=== PATIENT | male | born 1990 | race Caucasian/White ===

== ENCOUNTER 2016-02-23 22:36 | Inpatient (IN) | payer OTHER ==
--- NOTE | 2016-02-23 23:11 | HP ---
COWS - Scale Resting Pulse: 2= [place] 101-120 Sweatin=Flushed/Facial Moisture Restless Observation: 5= Unable to Sit Still Pupil Size: 2= Moderately Dilated Bone or Joint Aches: 4=Acute Joint/Muscle Pain Runny Nose/ Eye Tearin= None GI Upset > 30mins: 3= Vomiting/Diarrhea Tremor Observation: 2= Slight Tremor Visible Yawning Observation: 0= None Anxiety or Irritability: 2=Irritable/Anxious Goose Flesh Skin: 0=Smooth Skin COWS Score: 22 Admission [facility] Chief Complaint: withdrawal sx's Allergies/Adverse Reactions: Allergies Allergy/AdvReac Type Severity Reaction Status Date / Time No Known Allergies Allergy Verified 02/23/16 20:56 History of Present Illness: 25 Y.O. MALE WITH H/O OPIOID DEPENDENCE HERE FOR DETOX TXMENT. D/C FROM HERE 4 WEEKS AGO AND HAS SINCE RELAPSED. CLIENT WAS SEEN AND TREATED AT [facility] EARLIER TODAY FOR OPIATE OVERDOSE AND HAS SINCE BEEN MEDICALLY CLEARED. Exam Limitations: No Limitations - Ebola screening Have you traveled outside of the country in the last 21 days: No Have you had contact with anyone from an Ebola affected area: No Have you been sick,other than usual withdrawal symptoms: No Do you have a fever: No - Review of Systems Constitutional: Chills, Loss of Appetite, Night Sweats EENT: reports: No Symptoms Reported Respiratory: reports: No Symptoms reported Cardiac: reports: No Symptoms Reported GI: reports: Poor Appetite : reports: No Symptoms Reported Musculoskeletal: reports: Back Pain Neuro: reports: Other (ECZEMA TO FACE) Endocrine: reports: No Symptoms Reported Hematology: reports: No Symptoms Reported Psychiatric: reports: Anxious Other Systems: Reviewed and Negative Patient History - Patient Medical History Hx Anemia: No Hx Asthma: No Hx Chronic Obstructive Pulmonary Disease (COPD): No Hx Cancer: No Hx Cardiac Disorders: No Hx Congestive Heart Failure: No Hx Hypertension: No Hx Hypercholesterolemia: No Hx Pacemaker: No HX Cerebrovascular Accident: No Hx Seizures: No Hx Dementia: No Hx Diabetes: No Hx Gastrointestinal Disorders: No Hx Liver Disease: No Hx Genitourinary Disorders: No Hx Sexually Transmitted Disorders: No Hx Renal Disease (ESRD): No Hx Thyroid Disease: No Hx Human Immunodeficiency Virus (HIV): No Hx Hepatitis C: No Hx Depression: Yes (NO MEDS) Hx Suicide Attempt: No Hx Bipolar Disorder: No Hx Schizophrenia: No Other Medical History: DENIES - Patient Surgical History Past Surgical History: Yes Hx Neurologic Surgery: No Hx Cataract Extraction: No Hx Cardiac Surgery: No Hx Lung Surgery: No Hx Breast Surgery: No Hx Breast Biopsy: No Hx Abdominal Surgery: No Hx Appendectomy: No Hx Cholecystectomy: No Hx Genitourinary Surgery: No Hx Section: No Hx Orthopedic Surgery: No Other Surgical History: left ingroin hernia 2007 Anesthesia Reaction: No - PPD History Previous Implant?: Yes Documented Results: Negative w/proof Implanted On Prior [facility] Admission?: Yes Date: 01/18/16 Results: 0MM PPD to be Administered?: No - Smoking Cessation Smoking history: Current every day smoker Have you smoked in the past 12 months: Yes Aproximately how many cigarettes per day: 20 Cigars Per Day: 0 Hx Chewing Tobacco Use: No Initiated information on smoking cessation: Yes 'Breaking Loose' booklet given: 02/23/16 - Substance & Tx. History Hx Alcohol Use: No Hx Substance Use: Yes Substance Use Type: Alcohol Hx Substance Use Treatment: Yes ([facility]) - Substances Abused HEROIN Route: Inhalation Frequency: Daily Amount used: 7 BAGS Age of first use: 21 Date of Last Use: 02/23/16 Family Disease History - Family Disease History Family History: Denies Admission Physical Exam [facility] - Physical General Appearance: Yes: Appropriately Dressed, Moderate Distress, Sweating, Anxious, Other (PERIODS OF DROWSINESS) HEENTM: Yes: EOMI, Normocephalic, Pharynx Normal Respiratory: Yes: Chest Non-Tender, Lungs Clear, Normal Breath Sounds, No Respiratory Distress, No Accessory Muscle Use Neck: Yes: No masses,lesions,Nodules, Supple, Trachea in good position Breast: Yes: Breast Exam Deferred Cardiology: Yes: Regular Rhythm, S1, S2, Tachycardia Abdominal: Yes: Normal Bowel Sounds, Non Tender, Flat, Soft Genitourinary: Yes: Within Normal Limits Back: Yes: Normal Inspection Musculoskeletal: Yes: full range of Motion, Gait Steady Extremities: Yes: Normal Capillary Refill, Normal Range of Motion, Non-Tender, Tremors Neurological: Yes: Fully Oriented, Alert, Motor Strength 5/5 Integumentary: Yes: Normal Color, Warm, Moist, Other (ECZEMA) Lymphatic: Yes: Within Normal Limits - Diagnostic (1) Nicotine dependence Current Visit: Yes Status: Chronic Qualifiers: Nicotine product type: cigarettes Substance use status: uncomplicated Qualified Code(s): F17.210 - Nicotine dependence, cigarettes, uncomplicated (2) Opioid dependence with withdrawal Current Visit: Yes Status: Chronic Cleared for Admission [facility] - Detox or Rehab [facility] Level of Care: Medically Managed Detox Regimen/Protocol: Methadone [facility] Breath Alcohol Content Breath Alcohol Content: 0 Vital Signs - Vital Signs Vital Signs Refused: No Temperature: 96.3 F Temperature Source: Oral Pulse Rate: 105 Respiratory Rate: 20 Blood Pressure: 120/66 BP Location: Left Arm Blood Pressure Position: Sitting - Height Height: 6 ft 1 in - Weight Weight: 84.368 kg Weight Measurement Method: Standing Scale Body Mass Index (BMI): 24.5 - Bowel Function Bowel Movement: No Urine Drug Screen - Test Device Lot Number: [id number] Expiration Date: 10/08/17 - Control Is Test Valid: Yes - Results Drug Screen Negative: No Urine Drug Screen Results: OPI-Opiates, OXY-Oxycodone
[2016-02-23 23:26] VITALS: BMI 24.5
[2016-02-23] MEDS ORDERED: MAGNESIUM CITRATE 300 ML BOTTLE PO PRN (23:26)
[2016-02-23] MEDS ORDERED: guaiFENesin/D-METHORPHAN HB 10 ML UNIT-DOSE CUPS PO PRN (23:26)
[2016-02-23] MEDS ORDERED: MENTHOL/PHENOL 1 EACH UD MM PRN (23:26)
[2016-02-23] MEDS ORDERED: LOPERAMIDE HCL 2 MG CAPSULE PO PRN (23:26)
[2016-02-23] MEDS ORDERED: P-EPHED 60MG/TRIPROLIDI 2.5MG TABLET PO PRN (23:26)
[2016-02-23] MEDS ORDERED: MAGNESIUM HYDROX 2400MG/30ML ORAL SUSPENSION 30 ML CUP PO PRN (23:26)
[2016-02-23] MEDS ORDERED: MAG HYDROX/AL HYDROX/SIMETH 30 ML UNIT-DOSE CUP PO PRN (23:26)
[2016-02-23] MEDS ORDERED: ACETAMINOPHEN 325 MG TABLET (FP) PO PRN (23:26)
[2016-02-24] MEDS ORDERED: METHADONE HCL 10 MG TABLET (FOR DETOX USE ONLY) PO ONE ×3 (03:28→23:00)
[2016-02-24] MEDS ORDERED: diazePAM 5 MG TABLET PO PRN (03:28)
[2016-02-24] MEDS: NICOTINE POLACRILEX 2 MG GUM BC PRN ×2 (04:06→08:35)
--- NOTE | 2016-02-24 09:11 | EKG ---
Test Reason : Blood Pressure : / mmHG Vent. Rate : 079 BPM Atrial Rate : 079 BPM P-R Int : 152 ms QRS Dur : 100 ms QT Int : 428 ms P-R-T Axes : 075 068 033 degrees QTc Int : 490 ms NORMAL SINUS RHYTHM PROLONGED QT ABNORMAL ECG NO PREVIOUS ECGS AVAILABLE Confirmed by VIKRAM HERNANDEZ MD ([id number]) on 02/24/2016 9:10:56 AM Referred By: Confirmed By:VIKRAM HERNANDEZ MD
--- NOTE | 2016-02-24 09:52 | PN ---
[facility] Progress Note Note: PATIENT STATED HE HAS BEEN DRINKING ALCOHOL DAILY,1 PINT OF VODKA STATED AT AGE OF [age] YEARS OLD,LAST DRINKI ON 02/23/16 WILL ADD LIBRIUM TO HIS ORIGINAL METHADONE REGIMEN
[2016-02-24] MEDS ORDERED: chlordiazePOXIDE HCL 25 MG CAPSULE PO ONE (09:56)
[2016-02-24 10:07] LABS: ALBUMIN 4.5 g/dl (3.4-5.0); ALK PHOS 62 U/L (45-117); ANION GAP 6 (8-16); CALCIUM 8.9 mg/dL (8.5-10.1); CO2 32 mmol/L (21-32); CREATININE 0.9 mg/dL (0.7-1.3); GLUCOSE,RANDOM 72 mg/dL (74-106); SGOT/AST 16 U/L (15-37); SGPT/ALT 20 U/L (12-78); TOT PROT 7.2 g/dl (6.4-8.2)
[2016-02-24 10:39] LABS: MCH 30.6 pg (25.7-33.7); MCHC 35.6 g/dl (32.0-35.9); MEAN CELL VOLUME 85.8 fl (80-96); PLATELET COUNT 212 K/MM3 (134-434); RDW 12.8 % (11.9-15.9); WHITE BLOOD COUNT 10.8 K/mm3 (4.0-10.0)
[2016-02-24] MEDS: PRENATAL VITAMINS W/ FOLIC ACID TABLET (FP) PO SCH (10:43)
[2016-02-24] MEDS: hydrOXYzine PAMOATE 50 MG CAPSULE (FP) PO PRN (10:43)
[2016-02-24] MEDS: NICOTINE 21 MG/24 HOURS TOPICAL PATCH TD SCH (10:43)
--- NOTE | 2016-02-24 10:52 | PN ---
[facility] CIWA - CIWA Score Nausea/Vomitin Muscle Tremors: 3 Anxiety: 3 Agitation: 2 Paroxysmal Sweats: 1-Minimal Palms Moist Orientation: 0-Oriented Tacttile Disturbances: 1-Very Mild Itch/Numbness Auditory Disturbances: 1-Very Mild Visual Disturbances: 1-Very Mild Sensitivity Headache: 2-Mild CIWA-Ar Total Score: 17 [facility] COWS - Scale Resting Pulse: 1= [place] 81-100 Sweatin= Chills/Flushing Restless Observation: 3= Extraneous Movement Pupil Size: 1= Pupils >than Normal Bone or Joint Aches: 2= Severe Diffuse Aches Runny Nose/ Eye Tearin= Runny Nose/Eyes GI Upset > 30mins: 2= Nausea/Diarrhea Tremor Observation of Outstretched Hands: 2= Slight Tremor Visible Yawning Observation: 1= 1-2x During Session Anxiety or Irritability: 2=Irritable/Anxious Goose Flesh Skin: 0=Smooth Skin COWS Score: 17 [facility] Progress Note (SOAP) Subjective: ALERT,IRRITABLE,ANXIOUS,INTERRUPTED SLEEP,TREMOR,PAIN IN THE BODY AND BACK Objective: 02/24/16 10:45 Vital Signs Temperature 97.9 F 02/24/16 09:56 Pulse Rate 95 H 02/24/16 09:56 Respiratory Rate 18 02/24/16 09:56 Blood Pressure 124/82 02/24/16 09:56 O2 Sat by Pulse Oximetry (%) EKG NSR,PROLONG QT,POOR TRACING Laboratory Last Values WBC 10.8 K/mm3 (4.0-10.0) H D 02/24/16 08:00 RBC 4.65 M/mm3 (4.00-5.60) 02/24/16 08:00 Hgb 14.2 GM/dL (11.7-16.9) 02/24/16 08:00 Hct 39.9 % (35.4-49) 02/24/16 08:00 MCV 85.8 fl (80-96) 02/24/16 08:00 MCHC 35.6 g/dl (32.0-35.9) 02/24/16 08:00 RDW 12.8 % (11.9-15.9) 02/24/16 08:00 Plt Count 212 K/MM3 (134-434) 02/24/16 08:00 MPV 9.0 fl (7.5-11.1) 02/24/16 08:00 Sodium 139 mmol/L (136-145) 02/24/16 08:00 Potassium 4.0 mmol/L (3.5-5.1) 02/24/16 08:00 Chloride 101 mmol/L (98-107) 02/24/16 08:00 Carbon Dioxide 32 mmol/L (21-32) 02/24/16 08:00 Anion Gap 6 (8-16) L 02/24/16 08:00 BUN 10 mg/dL (7-18) 02/24/16 08:00 Creatinine 0.9 mg/dL (0.7-1.3) 02/24/16 08:00 Creat Clearance w eGFR > 60 (>60) 02/24/16 08:00 Random Glucose 72 mg/dL (74-106) L 02/24/16 08:00 Calcium 8.9 mg/dL (8.5-10.1) 02/24/16 08:00 Total Bilirubin 1.0 mg/dL (0.2-1.0) 02/24/16 08:00 AST 16 U/L (15-37) 02/24/16 08:00 ALT 20 U/L (12-78) 02/24/16 08:00 Alkaline Phosphatase 62 U/L (45-117) 02/24/16 08:00 Total Protein 7.2 g/dl (6.4-8.2) 02/24/16 08:00 Albumin 4.5 g/dl (3.4-5.0) 02/24/16 08:00 OTHER LABS PENDING 02/24/16 10:53 Assessment: 02/24/16 10:54 WITHDRAWAL SYMPTOM Plan: CONTINUE DETOX,LIBRIUM REGIMEN ADDED TO METHADONE REGIMEN
[2016-02-24 10:59] LABS: URINE APPEARANCE CLEAR; URINE BILIRUBIN NEGATIVE (NEGATIVE); URINE BLOOD NEGATIVE (NEGATIVE); URINE COLOR STRAW; URINE GLUCOSE (UA) NEGATIVE (NEGATIVE); URINE KETONE NEGATIVE (NEGATIVE); URINE LEUK ESTERASE NEGATIVE (NEGATIVE); URINE NITRITE NEGATIVE (NEGATIVE); URINE PROTEIN NEGATIVE (NEGATIVE); URINE UROBILINOGEN NEGATIVE E.U./dl (0.2-1.0)
[2016-02-24] MEDS: chlordiazePOXIDE HCL 25 MG CAPSULE PO SCH ×3 (11:31→22:50)
--- NOTE | 2016-02-24 12:16 | CONSULT ---
[facility] Psychiatric Consult - Data Date of interview: 02/24/16 Admission source: [facility] Identifying data: This is the second admission to [address] [place] [address] for this 25 yo single childless male,unemployed,supported by family. Substance Abuse History: Patient reports using heroin since 23 years old,15 bags daily recently. Medical History: unremarkable Psychiatric History: denies previous psychiatric history,no treatment,no suicidal attempts.Patient reports depressed on and off.Never been on medications and is not willing to start at present. Physical/Sexual Abuse/Trauma History: denies Mental Status Exam - Mental Status Exam Alert and Oriented to: Time, Place, Person Cognitive Function: Grossly Intact Mood: Euthymic Affect: Labile Patient Behavior: Cooperative Speech Pattern: Clear Voice Loudness: Normal Thought Process: Goal Oriented Thought Disorder: Not Present Hallucinations: Denies Suicidal Ideation: Denies Homicidal Ideation: Denies Insight/Judgement: Fair Sleep: Fair Appetite: Good Muscle strength/Tone: Normal Gait/Station: Normal Psychiatric Findings - Problem List ([place] 1, 2,3) (1) Nicotine dependence Current Visit: Yes Status: Chronic Qualifiers: Nicotine product type: cigarettes Substance use status: uncomplicated Qualified Code(s): F17.210 - Nicotine dependence, cigarettes, uncomplicated (2) Opioid dependence with withdrawal Current Visit: Yes Status: Chronic (3) Substance induced mood disorder Current Visit: Yes Status: Chronic - Initial Treatment Plan Initial Treatment Plan: Will monitor progress.Psychoeducation,supportive therapy provided.
[2016-02-24] MEDS: diphenhydrAMINE HCL 50 MG CAPSULE PO PRN (22:50)
[2016-02-24] MEDS: THIAMINE HCL 100 MG TABLET (FP) PO SCH (22:51)
[2016-02-25] MEDS: diphenhydrAMINE HCL 50 MG CAPSULE PO PRN (01:52)
[2016-02-25] MEDS: chlordiazePOXIDE HCL 25 MG CAPSULE PO PRN (01:55)
[2016-02-25] MEDS: chlordiazePOXIDE HCL 25 MG CAPSULE PO SCH ×4 (05:32→22:14)
[2016-02-25] MEDS: NICOTINE POLACRILEX 2 MG GUM BC PRN (06:44)
[2016-02-25] MEDS ORDERED: METHADONE HCL 10 MG TABLET (FOR DETOX USE ONLY) PO ONE (10:00)
[2016-02-25] MEDS: NICOTINE 21 MG/24 HOURS TOPICAL PATCH TD SCH (10:23)
[2016-02-25] MEDS: PRENATAL VITAMINS W/ FOLIC ACID TABLET (FP) PO SCH (10:24)
--- NOTE | 2016-02-25 14:52 | PN ---
S CIWA - CIWA Score Nausea/Vomitin Muscle Tremors: 3 Anxiety: 3 Agitation: 2 Paroxysmal Sweats: 3 Orientation: 0-Oriented Tacttile Disturbances: 1-Very Mild Itch/Numbness Auditory Disturbances: 0-None Visual Disturbances: 0-None Headache: 0-None Present CIWA-Ar Total Score: 14 [facility] COWS - Scale Resting Pulse: 1= [place] 81-100 Sweatin=Flushed/Facial Moisture Restless Observation: 1= Difficult to Sit Still Pupil Size: 1= Pupils >than Normal Bone or Joint Aches: 1= Mild Discomfort Runny Nose/ Eye Tearin= Nasal Congestion GI Upset > 30mins: 1= Stomach Cramp Tremor Observation of Outstretched Hands: 1= Tremor [place], Not Seen Yawning Observation: 0= None Anxiety or Irritability: 1=Feels Anxious/Irritable Goose Flesh Skin: 0=Smooth Skin COWS Score: 10 [facility] Progress Note (SOAP) Subjective: interrupted sleep but better , facial rash Objective: 02/25/16 14:49 Vital Signs Temperature 97.7 F 02/25/16 14:03 Pulse Rate 85 02/25/16 14:03 Respiratory Rate 18 02/25/16 14:03 Blood Pressure 113/57 02/25/16 14:03 O2 Sat by Pulse Oximetry (%) Laboratory Tests 02/24/16 02/24/16 02/24/16 08:00 08:00 08:00 WBC 10.8 H D RBC 4.65 Hgb 14.2 Hct 39.9 MCV 85.8 MCHC 35.6 RDW 12.8 Plt Count 212 MPV 9.0 Sodium 139 Potassium 4.0 Chloride 101 Carbon Dioxide 32 Anion Gap 6 L BUN 10 Creatinine 0.9 Creat Clearance w eGFR > 60 Random Glucose 72 L Calcium 8.9 Total Bilirubin 1.0 AST 16 ALT 20 Alkaline Phosphatase 62 Total Protein 7.2 Albumin 4.5 Urine Color Urine Appearance Urine pH Ur Specific [place] Urine Protein Urine Glucose (UA) Urine Ketones Urine Blood Urine Nitrite Urine Bilirubin Urine Urobilinogen Ur Leukocyte Esterase RPR Titer Nonreactive 02/24/16 08:00 WBC RBC Hgb Hct MCV MCHC RDW Plt Count MPV Sodium Potassium Chloride Carbon Dioxide Anion Gap BUN Creatinine Creat Clearance w eGFR Random Glucose Calcium Total Bilirubin AST ALT Alkaline Phosphatase Total Protein Albumin Urine Color Straw Urine Appearance Clear Urine pH 6.0 Ur Specific [place] 1.005 Urine Protein Negative Urine Glucose (UA) Negative Urine Ketones Negative Urine Blood Negative Urine Nitrite Negative Urine Bilirubin Negative Urine Urobilinogen Negative Ur Leukocyte Esterase Negative RPR Titer pt [id number] in nad ambulating feeling well 02/25/16 14:50 face pap. squamous rash on face Assessment: 02/25/16 14:51 withdrawl sxs philip. derm Plan: cont. detox increase fluids hydrocortisone cream
[2016-02-25] MEDS: HYDROCORTISONE 1% TOPICAL CREAM 30 GM TUBE TP PRN (15:53)
[2016-02-25] MEDS: hydrOXYzine PAMOATE 50 MG CAPSULE (FP) PO PRN (17:52)
[2016-02-25] MEDS: IBUPROFEN 400 MG TABLET (FP) PO PRN (17:53)
--- NOTE | 2016-02-25 18:40 | PN ---
[facility] Progress Note Note: called by nurse to order Trazodone for insomnia, reviewed medical record patient was seen twice while in detox and during the evaluation patient denied any history of treatment with medications, will order ambien 10 mg prn
[2016-02-25] MEDS: ZOLPIDEM TARTRATE 10 MG TABLET (PARK CARE ONLY) PO PRN (22:14)
[2016-02-25] MEDS: THIAMINE HCL 100 MG TABLET (FP) PO SCH (22:14)
[2016-02-26] MEDS: diphenhydrAMINE HCL 50 MG CAPSULE PO PRN (01:02)
[2016-02-26] MEDS: chlordiazePOXIDE HCL 25 MG CAPSULE PO SCH (05:27)
[2016-02-26] MEDS: IBUPROFEN 400 MG TABLET (FP) PO PRN (06:30)
[2016-02-26] MEDS ORDERED: METHADONE HCL 5 MG TABLET (FOR DETOX USE ONLY) PO ONE (10:00)
[2016-02-26] MEDS: chlordiazePOXIDE 5 MG CAPSULE PO SCH ×3 (10:19→22:10)
[2016-02-26] MEDS: NICOTINE 21 MG/24 HOURS TOPICAL PATCH TD SCH (10:19)
[2016-02-26] MEDS: HYDROCORTISONE 1% TOPICAL CREAM 30 GM TUBE TP PRN (10:19)
[2016-02-26] MEDS: PRENATAL VITAMINS W/ FOLIC ACID TABLET (FP) PO SCH (10:19)
[2016-02-26] MEDS: TRIAMCINOLONE ACET 0.1% CREAM 15 GM TUBE TP SCH ×2 (12:29→22:10)
[2016-02-26] MEDS: chlordiazePOXIDE HCL 25 MG CAPSULE PO PRN (12:51)
--- NOTE | 2016-02-26 12:58 | PN ---
[facility] Progress Note (SOAP) Subjective: interrupted sleep, sweats , wants to see psych to change sleep meds Objective: 02/26/16 12:56 Vital Signs Temperature 97.5 F L 02/26/16 10:02 Pulse Rate 77 02/26/16 10:02 Respiratory Rate 16 02/26/16 10:02 Blood Pressure 114/62 02/26/16 10:02 O2 Sat by Pulse Oximetry (%) Laboratory Tests 02/24/16 02/24/16 02/24/16 08:00 08:00 08:00 WBC 10.8 H D RBC 4.65 Hgb 14.2 Hct 39.9 MCV 85.8 MCHC 35.6 RDW 12.8 Plt Count 212 MPV 9.0 Sodium 139 Potassium 4.0 Chloride 101 Carbon Dioxide 32 Anion Gap 6 L BUN 10 Creatinine 0.9 Creat Clearance w eGFR > 60 Random Glucose 72 L Calcium 8.9 Total Bilirubin 1.0 AST 16 ALT 20 Alkaline Phosphatase 62 Total Protein 7.2 Albumin 4.5 Urine Color Urine Appearance Urine pH Ur Specific [place] Urine Protein Urine Glucose (UA) Urine Ketones Urine Blood Urine Nitrite Urine Bilirubin Urine Urobilinogen Ur Leukocyte Esterase RPR Titer Nonreactive 02/24/16 08:00 WBC RBC Hgb Hct MCV MCHC RDW Plt Count MPV Sodium Potassium Chloride Carbon Dioxide Anion Gap BUN Creatinine Creat Clearance w eGFR Random Glucose Calcium Total Bilirubin AST ALT Alkaline Phosphatase Total Protein Albumin Urine Color Straw Urine Appearance Clear Urine pH 6.0 Ur Specific [place] 1.005 Urine Protein Negative Urine Glucose (UA) Negative Urine Ketones Negative Urine Blood Negative Urine Nitrite Negative Urine Bilirubin Negative Urine Urobilinogen Negative Ur Leukocyte Esterase Negative RPR Titer pt aox3 in nad ambulating Assessment: 02/26/16 12:57 withdrawl sxs insomnia Plan: cont. detox increase fluids pysch re-eval
[2016-02-26] MEDS: THIAMINE HCL 100 MG TABLET (FP) PO SCH (22:10)
[2016-02-26] MEDS: ZOLPIDEM TARTRATE 10 MG TABLET (PARK CARE ONLY) PO PRN (22:10)
[2016-02-27] MEDS: hydrOXYzine PAMOATE 50 MG CAPSULE (FP) PO PRN (02:08)
[2016-02-27] MEDS: chlordiazePOXIDE 5 MG CAPSULE PO SCH (05:34)
[2016-02-27] MEDS: IBUPROFEN 400 MG TABLET (FP) PO PRN (06:32)
[2016-02-27] MEDS ORDERED: METHADONE HCL 5 MG TABLET (FOR DETOX USE ONLY) PO ONE (10:00)
[2016-02-27] MEDS: PRENATAL VITAMINS W/ FOLIC ACID TABLET (FP) PO SCH (10:11)
[2016-02-27] MEDS: TRIAMCINOLONE ACET 0.1% CREAM 15 GM TUBE TP SCH ×2 (10:11→23:20)
[2016-02-27] MEDS: NICOTINE 21 MG/24 HOURS TOPICAL PATCH TD SCH (10:12)
[2016-02-27] MEDS: chlordiazePOXIDE HCL 10 MG CAPSULE PO SCH ×3 (10:12→22:08)
--- NOTE | 2016-02-27 10:50 | PN ---
[facility] Progress Note (SOAP) Subjective: tired interrupted sleep irritable Objective: 02/27/16 10:52 Vital Signs Temperature 98.1 F 02/27/16 10:02 Pulse Rate 90 02/27/16 10:02 Respiratory Rate 18 02/27/16 10:02 Blood Pressure 126/69 02/27/16 10:02 O2 Sat by Pulse Oximetry (%) awake/alert ambulating no acute distress Assessment: 02/27/16 10:52 withdrawal sx Plan: continue detox increase fluids
[2016-02-27] MEDS: THIAMINE HCL 100 MG TABLET (FP) PO SCH (22:07)
[2016-02-27] MEDS: ZOLPIDEM TARTRATE 10 MG TABLET (PARK CARE ONLY) PO PRN (22:08)
[2016-02-28] MEDS: hydrOXYzine PAMOATE 50 MG CAPSULE (FP) PO PRN ×3 (00:46→10:39)
[2016-02-28] MEDS: chlordiazePOXIDE HCL 10 MG CAPSULE PO SCH (05:28)
[2016-02-28] MEDS: IBUPROFEN 400 MG TABLET (FP) PO PRN (05:30)
[2016-02-28] MEDS ORDERED: METHADONE HCL 10 MG TABLET (FOR DETOX USE ONLY) PO ONE (10:00)
[2016-02-28] MEDS: PRENATAL VITAMINS W/ FOLIC ACID TABLET (FP) PO SCH (10:32)
[2016-02-28] MEDS: NICOTINE 21 MG/24 HOURS TOPICAL PATCH TD SCH (10:33)
[2016-02-28] MEDS: TRIAMCINOLONE ACET 0.1% CREAM 15 GM TUBE TP SCH ×2 (10:33→22:16)
--- NOTE | 2016-02-28 10:50 | PN ---
[facility] Progress Note (SOAP) Subjective: irritable tired Objective: 02/28/16 10:49 Vital Signs Temperature 97.7 F 02/28/16 10:00 Pulse Rate 90 02/28/16 10:00 Respiratory Rate 18 02/28/16 10:00 Blood Pressure 114/67 02/28/16 10:00 O2 Sat by Pulse Oximetry (%) awake/alert ambulating no acute distress Assessment: 02/28/16 10:49 withdrawal sx Plan: continue detox increase fluids d/c in am
[2016-02-28] MEDS: THIAMINE HCL 100 MG TABLET (FP) PO SCH (22:14)
[2016-02-28] MEDS: ZOLPIDEM TARTRATE 10 MG TABLET (PARK CARE ONLY) PO PRN (22:14)
[2016-02-29] MEDS: hydrOXYzine PAMOATE 50 MG CAPSULE (FP) PO PRN (04:29)
[2016-02-29] MEDS ORDERED: METHADONE HCL 5 MG TABLET (FOR DETOX USE ONLY) PO ONE (06:00)
[2016-02-29 06:24] VITALS: BP 119/77; PULSE 81; TEMP 98.4
--- NOTE | 2016-02-29 09:16 | PN ---
[facility] Progress Note (SOAP) Subjective: no complaints Objective: 02/29/16 09:15 Vital Signs - 24 hr 02/28/16 02/28/16 02/28/16 10:00 14:52 17:44 Temperature 97.7 F 98.2 F 97.9 F Pulse Rate 90 89 72 Respiratory 18 18 18 Rate Blood Pressure 114/67 122/63 116/53 02/28/16 02/29/16 02/29/16 21:53 00:30 03:30 Temperature 96.3 F L Pulse Rate 91 H Respiratory 20 16 18 Rate Blood Pressure 113/58 02/29/16 06:23 Temperature 98.4 F Pulse Rate 81 Respiratory 20 Rate Blood Pressure 119/77 Laboratory Tests 02/24/16 02/24/16 02/24/16 08:00 08:00 08:00 WBC 10.8 H D RBC 4.65 Hgb 14.2 Hct 39.9 MCV 85.8 MCHC 35.6 RDW 12.8 Plt Count 212 MPV 9.0 Sodium 139 Potassium 4.0 Chloride 101 Carbon Dioxide 32 Anion Gap 6 L BUN 10 Creatinine 0.9 Creat Clearance w eGFR > 60 Random Glucose 72 L Calcium 8.9 Total Bilirubin 1.0 AST 16 ALT 20 Alkaline Phosphatase 62 Total Protein 7.2 Albumin 4.5 Urine Color Urine Appearance Urine pH Ur Specific [place] Urine Protein Urine Glucose (UA) Urine Ketones Urine Blood Urine Nitrite Urine Bilirubin Urine Urobilinogen Ur Leukocyte Esterase RPR Titer Nonreactive 02/24/16 08:00 WBC RBC Hgb Hct MCV MCHC RDW Plt Count MPV Sodium Potassium Chloride Carbon Dioxide Anion Gap BUN Creatinine Creat Clearance w eGFR Random Glucose Calcium Total Bilirubin AST ALT Alkaline Phosphatase Total Protein Albumin Urine Color Straw Urine Appearance Clear Urine pH 6.0 Ur Specific [place] 1.005 Urine Protein Negative Urine Glucose (UA) Negative Urine Ketones Negative Urine Blood Negative Urine Nitrite Negative Urine Bilirubin Negative Urine Urobilinogen Negative Ur Leukocyte Esterase Negative RPR Titer Assessment: 02/29/16 09:15 completed detox, medically stable Plan: d/c to rehab today.
--- NOTE | 2016-02-29 09:19 | DS ---
[facility] Detox Discharge Summary Admission Date: 02/23/16 Discharge Date: 02/29/16 - History Present History: Opioid Dependence Pertinent Past History: anxiety, depression, insomnia, nicotine dependence - Physical Exam Results Vital Signs: Vital Signs Temperature 98.4 F 02/29/16 06:23 Pulse Rate 81 02/29/16 06:23 Respiratory Rate 20 02/29/16 06:23 Blood Pressure 119/77 02/29/16 06:23 O2 Sat by Pulse Oximetry (%) Pertinent Admission Physical Exam Findings: Yes - Treatment Hospital Course: Detox Protocol Followed, Detoxed Safely, Responded well, Discharged Condition Good, Rehab Referral Accepted - Medication Discharge Medications: Ambulatory Orders NK [No Known Home Medication] 01/16/16 - Diagnosis (1) Nicotine dependence Current Visit: Yes Status: Chronic Qualifiers: Nicotine product type: cigarettes Substance use status: uncomplicated Qualified Code(s): F17.210 - Nicotine dependence, cigarettes, uncomplicated (2) Opioid dependence with withdrawal Current Visit: Yes Status: Chronic (3) Substance induced mood disorder Current Visit: Yes Status: Chronic (4) Weight loss Current Visit: No Status: Resolved - AMA Did Patient Leave Against Medical Advice: No
== END 2016-02-29 09:25 | disposition home or self-care (01) | DRG 773 ==
LOC: YASAS 22:36 → Y6N 23:31
PROVIDERS: ADMIT Internal Medicine; ATTEND Internal Medicine
PROC: HZ2ZZZZ Detoxification Services for Substance Abuse Treatment (ICD-10-PCS; principal; 2016-02-23)
DX: F11.23 Opioid dependence with withdrawal (principal); F17.210 Nicotine dependence, cigarettes, uncomplicated; F19.24 Other psychoactive substance dependence with psychoactive substance-induced mood disorder; G47.00 Insomnia, unspecified; R00.0 Tachycardia, unspecified; L21.9 Seborrheic dermatitis, unspecified; Z87.898 Personal history of other specified conditions
CPT/HCPCS: 36415; 80053; 81003; 85027; 86593; 93005; 93010

== ENCOUNTER → 2016-02-23 | Emergency (ER) | payer OTHER ==
[~2016-02-23] MED LIST: IBUPROFEN 600 MG TABLET (FP) PO ONE; NALOXONE HCL 0.4 MG/ML VIAL IM ONE; NALOXONE HCL 0.4 MG/ML VIAL ONE
[2016-02-23 20:56] VITALS: BP 130/85; PULSE 121; BMI 23.7
--- NOTE | 2016-02-23 21:08 | PDOC ---
History of Present Illness - History of Present Illness Initial Comments: 02/23/16 21:57 Patient is a 25 year old male with significant medical hx of heroin and nicotine dependence who has been brought to the ED today for heroin abuse. The patient is awake, alert, breathing and talking. He is complaining of a headache and requesting detox. Denies nausea or vomiting. <Felecia Isaac - Last Filed: 02/23/16 21:57> <Roseline Matthews - Last Filed: 02/24/16 00:42> - General Chief Complaint: Overdose Stated Complaint: PSYCHIATRIC Time Seen by Provider: 02/23/16 21:02 Past History <Felecia Isaac - Last Filed: 02/23/16 21:57> - Past Medical History Anemia: No Asthma: No Cancer: No Cardiac Disorders: No CVA: No COPD: No CHF: No Dementia: No Diabetes: No GI Disorders: No Disorders: No HTN: No Hypercholesterolemia: No Kidney Stones: No Liver Disease: No Suicide Attempt (Hx): No Seizures: No Thyroid Disease: No - Surgical History Abdominal Surgery: No Appendectomy: No Cardiac Surgery: No Cholecystectomy: No Lung Surgery: No Neurologic Surgery: No Orthopedic Surgery: No - Reproductive History Testicular Surgery: No - Psycho/Social/Smoking Cessation Hx Suicidal Ideation: No Smoking History: Unknown if ever smoked Have you smoked in the past 12 months: Yes Number of Cigarettes Smoked Daily: 20 Cigars Per Day: 0 Information on smoking cessation initiated: No 'Breaking Loose' booklet given: 01/16/16 Hx Alcohol Use: No Drug/Substance Use Hx: Yes (heroin) Substance Use Type: Marijuana, Opiates Hx Substance Use Treatment: Yes <Roseline Matthews - Last Filed: 02/24/16 00:42> - Past Medical History Allergies/Adverse Reactions: Allergies Allergy/AdvReac Type Severity Reaction Status Date / Time No Known Allergies Allergy Verified 02/23/16 20:56 Home Medications: Ambulatory Orders NK [No Known Home Medication] 01/16/16 Review of Systems - Review of Systems Comments:: 02/23/16 21:58 CONSTITUTIONAL: Present: heroin use Absent: fever, chills, diaphoresis, generalized weakness, malaise, loss of appetite HEENT: Absent: rhinorrhea, nasal congestion, throat pain, throat swelling, difficulty swallowing, mouth swelling, ear pain, eye pain, visual changes CARDIOVASCULAR: Absent: chest pain, syncope, palpitations, irregular heart rate, lightheadedness , peripheral edema RESPIRATORY: Absent: cough, shortness of breath, dyspnea with exertion, orthopnea, wheezing, stridor, hemoptysis GASTROINTESTINAL: Absent: abdominal pain, abdominal distension, nausea, vomiting, diarrhea, constipation, melena, hematochezia GENITOURINARY: Absent: dysuria, frequency, urgency, hesitancy, hematuria, flank pain, genital pain MUSCULOSKELETAL: Absent: myalgia, arthralgia, joint swelling SKIN: Absent: rash, itching, pallor HEMATOLOGIC/IMMUNOLOGIC: Absent: easy bleeding, easy bruising, lymphadenopathy, frequent infections ENDOCRINE: Absent: unexplained weight gain, unexplained weight loss, heat intolerance, cold intolerance NEUROLOGIC: Present: headache Absent: focal weakness or paresthesia, dizziness, unsteady gait, seizure, mental status changes, bladder or bowel incontinence. PSYCHIATRIC: Absent: anxiety, depression, suicidal or homicidal ideation, hallucinations <Felecia Isaac - Last Filed: 02/23/16 21:57> *Physical Exam - Vital Signs Last Vital Signs Temp Pulse Resp BP Pulse Ox 98.3 F 121 H 16 130/85 97 02/23/16 21:19 02/23/16 20:53 02/23/16 20:53 02/23/16 20:53 02/23/16 21:22 - Physical Exam Comments: 02/23/16 22:00 GENERAL: Well developed, well nourished. Awake and alert. No acute distress. HEENT: Normocephalic, atraumatic. PERRLA, EOMI. No conjunctival pallor. Injected sclera. Sclera are non-icteric. Moist mucous membranes. Oropharynx is clear. NECK: Supple. Full ROM. No JVD. Carotid pulses 2+ and symmetric, without bruits. No thyromegaly. No lymphadenopathy. CARDIOVASCULAR: Regular rate and rhythm. No murmurs, rubs, or gallops. Distal pulses are 2+ and symmetric. PULMONARY: No evidence of respiratory distress. Lungs clear to auscultation bilaterally. No wheezing, rales or rhonchi. ABDOMINAL: Soft. Non-tender. Non-distended. No rebound or guarding. No organomegaly. Normoactive bowel sounds. MUSCULOSKELETAL: Normal range of motion at all joints. No bony deformities or tenderness. No CVA tenderness. EXTREMITIES: No cyanosis. No clubbing. No edema. No calf tenderness. SKIN: Malar rash to the face. Warm and dry. Normal capillary refill. No jaundice. NEUROLOGICAL: Alert, awake, appropriate. Cranial nerves 2-12 intact. Normal speech. Toes are down-going bilaterally. Gait is normal without ataxia. PSYCHIATRIC: Cooperative. Good eye contact. Appropriate mood and affect. <Felecia Isaac - Last Filed: 02/23/16 21:57> - Vital Signs Last Vital Signs Temp Pulse Resp BP Pulse Ox 121 H 16 130/85 91 L 02/23/16 20:53 02/23/16 20:53 02/23/16 20:53 02/23/16 20:53 <Roseline Matthews - Last Filed: 02/24/16 00:42> ED Treatment Course - LABORATORY CBC & Chemistry Diagram: 02/23/16 21:46 02/23/16 21:46 - Medications Given in the ED: ED Medications Discontinued Medications Generic Name Dose Route Start Last Admin Trade Name Juan Manuel PRN Reason Stop Dose Admin Ibuprofen 600 mg 02/23/16 21:22 02/23/16 21:27 Motrin - PO 02/23/16 21:23 600 mg ONCE ONE Administration Naloxone HCl 0.4 mg 02/23/16 21:04 02/23/16 21:07 Narcan - IM 02/23/16 21:05 0.4 mg ONCE ONE Administration <Felecia Isaac - Last Filed: 02/23/16 21:57> - LABORATORY CBC & Chemistry Diagram: 02/23/16 21:46 02/23/16 21:46 <Roseline Matthews - Last Filed: 02/24/16 00:42> Medical Decision Making - Medical Decision Making 02/23/16 21:10 PT COMES WITH FAMILY; HE IS A HEROIN ABUSER. COMES WITH MOM AND SISTER. HE IS MINIMALLY SOMNOLENT; BREATHING WELL. NO PMHx. HE WAS GIVEN NARCAN AND WOKE UP. HE HAS NO POSITIVE MEDICAL FINDINGS 02/24/16 00:41 Pt is afebrile. He has an elevated WBC count likely due to all the drugs that he abuses. He was accepted to heroin detox and we will send him there for heroin detox. Stable for transfer. <Roseline Matthews - Last Filed: 02/24/16 00:42> *DC/Admit/Observation/Transfer - Attestations Scribe Attestion: 02/23/16 22:02 Documentation prepared by Felecia Isaac, acting as nurses medical assistants phlebotomists for Roseline Matthews MD. <Felecia Isaac - Last Filed: 02/23/16 21:57> <Roseline Matthews - Last Filed: 02/24/16 00:42> Diagnosis at time of Disposition: Heroin abuse, Heroin addiction - Discharge Dispostion Disposition: I.P. ALCOHOL/SUBS ABUSE REHAB Condition at time of disposition: Poor
[2016-02-23 21:19] VITALS: TEMP 98.3
[2016-02-23 21:57] LABS: BASOPHIL 0.5 % (0-2.0); EOSINOPHIL 1.5 % (0-4.5); MCH 28.7 pg (25.7-33.7); MCHC 33.7 g/dl (32.0-35.9); MEAN CELL VOLUME 85.1 fl (80-96); MEAN PLT VOLUME 8.4 fl (7.5-11.1); NEUTROPHILS 74.3 % (42.8-82.8); PLATELET COUNT 218 K/MM3 (134-434); RDW 12.8 % (11.9-15.9); WHITE BLOOD COUNT 16.4 K/mm3 (4.0-10.0)
[2016-02-23 22:23] LABS: ALBUMIN 4.9 g/dl (3.4-5.0); ALK PHOS 65 U/L (45-117); ANION GAP 7 (8-16); BILIRUBIN,TOTAL 0.9 mg/dL (0.2-1.0); CALCIUM 8.6 mg/dL (8.5-10.1); CO2 29 mmol/L (21-32); CREATININE 1.1 mg/dL (0.7-1.3); GLUCOSE,RANDOM 87 mg/dL (74-106); SGOT/AST 16 U/L (15-37); SGPT/ALT 21 U/L (12-78); TOT PROT 7.9 g/dl (6.4-8.2)
== END | disposition other institution (70) ==
LOC: JER 20:37
PROC: 3E023GC Introduction of Other Therapeutic Substance into Muscle, Percutaneous Approach (ICD-10-PCS; principal; 2016-02-23)
DX: F11.20 Opioid dependence, uncomplicated (principal); F17.210 Nicotine dependence, cigarettes, uncomplicated
CPT/HCPCS: 36415; 80053; 85025; 96372; 99282-25

== ENCOUNTER 2016-05-10 20:44 | Inpatient (IN) | payer OTHER ==
--- NOTE | 2016-05-10 21:10 | HP ---
COWS - Scale Resting Pulse: 1= [place] 81-100 Sweatin=Flushed/Facial Moisture Restless Observation: 3= Extraneous Movement Pupil Size: 1= Pupils >than Normal Bone or Joint Aches: 2= Severe Diffuse Aches Runny Nose/ Eye Tearin= Runny Nose/Eyes GI Upset > 30mins: 1= Stomach Cramp Tremor Observation: 1= Tremor [place], Not Seen Yawning Observation: 1= 1-2x During Session Anxiety or Irritability: 1=Feels Anxious/Irritable Goose Flesh Skin: 3=Piloerection COWS Score: 18 CIWA Score - CIWA Score Nausea/Vomitin Muscle Tremors: 3 Anxiety: 3 Agitation: 3 Paroxysmal Sweats: 3 Orientation: 1-Uncertain about Date Tacttile Disturbances: 1-Very Mild Itch/Numbness Auditory Disturbances: 0-None Visual Disturbances: 0-None Headache: 0-None Present CIWA-Ar Total Score: 17 Admission ROS S - HPI Chief Complaint: Withdrawal symptoms Allergies/Adverse Reactions: Allergies Allergy/AdvReac Type Severity Reaction Status Date / Time No Known Allergies Allergy Verified 02/23/16 20:56 History of Present Illness: 25 y.o. man with a 6 year history of dependence to opiates and benzodiazapines is seeking detox. He was previously here in 02/2016. He does not have a significant period of sobriety. Exam Limitations: No Limitations - Ebola screening Have you traveled outside of the country in the last 21 days: No (N) Have you had contact with anyone from an Ebola affected area: No Do you have a fever: No - Review of Systems Constitutional: Chills, Diaphoresis, Loss of Appetite, Malaise, Night Sweats, Changes in sleep EENT: reports: Blurred Vision, Double Vision, Tearing, Nose Congestion Respiratory: reports: Cough, Shortness of Breath Cardiac: reports: No Symptoms Reported GI: reports: No Symptoms Reported, Poor Appetite : reports: No Symptoms Reported Musculoskeletal: reports: Back Pain, Muscle Weakness Integumentary: reports: Dryness (h/o eczema) Neuro: reports: Weakness Hematology: reports: No Symptoms Reported Psychiatric: reports: Mood/Affect Appropiate, Anxious, Depressed Other Systems: Reviewed and Negative Patient History - Patient Medical History Hx Anemia: No Hx Asthma: No Hx Chronic Obstructive Pulmonary Disease (COPD): No Hx Cancer: No Hx Cardiac Disorders: No Hx Congestive Heart Failure: No Hx Hypertension: No Hx Hypercholesterolemia: No Hx Pacemaker: No HX Cerebrovascular Accident: No Hx Seizures: No Hx Dementia: No Hx Diabetes: No Hx Gastrointestinal Disorders: No Hx Liver Disease: No Hx Genitourinary Disorders: No Hx Sexually Transmitted Disorders: No Hx Renal Disease (ESRD): No Hx Thyroid Disease: No Hx Human Immunodeficiency Virus (HIV): No Hx Hepatitis C: No Hx Depression: Yes Hx Suicide Attempt: No Hx Bipolar Disorder: No Hx Schizophrenia: No Other Medical History: Anxiety - Patient Surgical History Past Surgical History: Yes Hx Neurologic Surgery: No Hx Cataract Extraction: No Hx Cardiac Surgery: No Hx Lung Surgery: No Hx Breast Surgery: No Hx Breast Biopsy: No Hx Abdominal Surgery: No Hx Appendectomy: No Hx Cholecystectomy: No Hx Genitourinary Surgery: No Hx Section: No Hx Orthopedic Surgery: No Other Surgical History: left ingroin hernia 2007 Anesthesia Reaction: No - PPD History Previous Implant?: Yes Documented Results: Negative w/proof Implanted On Prior R Admission?: Yes Date: 01/18/16 Results: 0MM PPD to be Administered?: No - Reproductive History Patient is a Female of Child Bearing Age (11 -55 yrs old): No - Smoking Cessation Smoking history: Current every day smoker Have you smoked in the past 12 months: Yes Aproximately how many cigarettes per day: 40 Cigars Per Day: 0 Hx Chewing Tobacco Use: No Initiated information on smoking cessation: Yes 'Breaking Loose' booklet given: 05/10/16 - Substance & Tx. History Hx Alcohol Use: No Hx Substance Use: Yes Substance Use Type: Opiates, Tranquilizers Hx Substance Use Treatment: Yes (Detox and rehab ) - Substances Abused Alprazolam (Xanax) Route: Oral Frequency: 3-6 times per week Amount used: 3 sticks Age of first use: 17 Date of Last Use: 05/10/16 Heroin Route: Injection Frequency: Daily Amount used: 2 bundles Age of first use: 22 Date of Last Use: 05/10/16 Family Disease History - Family Disease History Family History: Unremarkable Admission Physical Exam BHS - Vital Signs Vital Signs: Last Vital Signs Temp Pulse Resp BP Pulse Ox 96.3 F L 84 17 104/56 05/10/16 21:22 05/10/16 21:22 05/10/16 21:22 05/10/16 21:22 - Physical General Appearance: Yes: Irritable, Sweating, Anxious HEENTM: Yes: Nasal Congestion Respiratory: Yes: Chest Non-Tender, Lungs Clear, Normal Breath Sounds, No Respiratory Distress, No Accessory Muscle Use Breast: Yes: Breast Exam Deferred Cardiology: Yes: Regular Rhythm, Regular Rate Abdominal: Yes: Normal Bowel Sounds, Non Tender, Flat Genitourinary: Yes: Other (No complaints reported) Back: Yes: Normal Inspection Musculoskeletal: Yes: full range of Motion, Gait Steady, Back pain Extremities: Yes: Normal Capillary Refill, Normal Inspection, Normal Range of Motion, Non-Tender Neurological: Yes: Alert, Normal Mood/Affect, Normal Response Integumentary: Yes: Dry, Track [place] Lymphatic: Yes: Within Normal Limits - Diagnostic (1) Nicotine dependence Current Visit: Yes Status: Chronic Qualifiers: Nicotine product type: cigarettes Substance use status: uncomplicated Qualified Code(s): F17.210 - Nicotine dependence, cigarettes, uncomplicated (2) Opioid dependence with withdrawal Current Visit: Yes Status: Chronic (3) Sedative, hypnotic or anxiolytic dependence, uncomplicated Current Visit: Yes Status: Chronic (4) Eczema Current Visit: Yes Status: Chronic Cleared for Admission S - Detox or Rehab S Level of Care: Medically Managed Detox Regimen/Protocol: Methadone/Valium BHS Breath Alcohol Content Breath Alcohol Content: 0 Vital Signs - Vital Signs Vital Signs Refused: No Temperature: 96.3 F Temperature Source: Oral Pulse Rate: 84 Respiratory Rate: 17 Blood Pressure: 104/56 BP Location: Left Arm Blood Pressure Position: Sitting - Height Height: 6 ft 1 in - Weight Weight: 187 lb Weight Measurement Method: Standing Scale Body Mass Index (BMI): 24.6 Urine Drug Screen - Test Device Lot Number: [id number] Expiration Date: 01/07/18 - Control Is Test Valid: Yes - Results Drug Screen Negative: No Urine Drug Screen Results: THC-Marijuana, OPI-Opiates, BZO-Benzodiazepines, OXY- Oxycodone
[2016-05-10 21:22] VITALS: BMI 24.6
[2016-05-10] MEDS ORDERED: MAG HYDROX/AL HYDROX/SIMETH 30 ML UNIT-DOSE CUP PO PRN (21:22)
[2016-05-10] MEDS ORDERED: MAGNESIUM HYDROX 2400MG/30ML ORAL SUSPENSION 30 ML CUP PO PRN (21:22)
[2016-05-10] MEDS ORDERED: NICOTINE POLACRILEX 4 MG GUM BC PRN (21:22)
[2016-05-10] MEDS ORDERED: P-EPHED 60MG/TRIPROLIDI 2.5MG TABLET PO PRN (21:22)
[2016-05-10] MEDS ORDERED: diazePAM 5 MG TABLET PO PRN (21:22)
[2016-05-10] MEDS ORDERED: METHADONE HCL 10 MG TABLET (FOR DETOX USE ONLY) PO ONE ×2 (21:22→23:00)
[2016-05-10] MEDS ORDERED: diphenhydrAMINE HCL 50 MG CAPSULE PO PRN (21:22)
[2016-05-10] MEDS ORDERED: hydrOXYzine PAMOATE 50 MG CAPSULE (FP) PO PRN (21:22)
[2016-05-10] MEDS ORDERED: guaiFENesin/D-METHORPHAN HB 10 ML UNIT-DOSE CUPS PO PRN (21:22)
[2016-05-10] MEDS ORDERED: MENTHOL/PHENOL 1 EACH UD MM PRN (21:22)
[2016-05-10] MEDS ORDERED: diazePAM 5 MG TABLET PO ONE (21:22)
[2016-05-10] MEDS ORDERED: ACETAMINOPHEN 325 MG TABLET (FP) PO PRN (21:22)
[2016-05-10] MEDS ORDERED: LOPERAMIDE HCL 2 MG CAPSULE PO PRN (21:22)
[2016-05-10] MEDS ORDERED: MAGNESIUM CITRATE 300 ML BOTTLE PO PRN (21:22)
[2016-05-10] MEDS ORDERED: IBUPROFEN 400 MG TABLET (FP) PO PRN (21:22)
[2016-05-10] MEDS ORDERED: THIAMINE HCL 100 MG TABLET (FP) PO SCH (22:00)
[2016-05-10] MEDS: diazePAM 5 MG TABLET PO SCH (23:07)
[2016-05-11 06:06] VITALS: BP 127/68
[2016-05-11] MEDS: diazePAM 5 MG TABLET PO SCH (06:16)
--- NOTE | 2016-05-11 09:31 | DS ---
[facility] Detox Discharge Summary Admission Date: 05/10/16 Discharge Date: 05/11/16 - History Present History: Cocaine Dependence, Opioid Dependence, Sedative Dependence - Physical Exam Results Vital Signs: Vital Signs Temperature 98.1 F 05/11/16 06:00 Pulse Rate 69 05/11/16 06:00 Respiratory Rate 18 05/11/16 06:00 Blood Pressure 127/68 05/11/16 06:00 O2 Sat by Pulse Oximetry (%) - Treatment Hospital Course: Detox Protocol Followed - Medication Discharge Medications: Ambulatory Orders NK [No Known Home Medication] 01/16/16 - Diagnosis (1) Eczema Current Visit: Yes Status: Chronic (2) Nicotine dependence Current Visit: Yes Status: Chronic Qualifiers: Nicotine product type: cigarettes Substance use status: uncomplicated Qualified Code(s): F17.210 - Nicotine dependence, cigarettes, uncomplicated (3) Opioid dependence with withdrawal Current Visit: Yes Status: Chronic - AMA Did Patient Leave Against Medical Advice: Yes (feels he has to go. )
[2016-05-11 09:42] LABS: MCH 29.5 pg (25.7-33.7); MCHC 34.3 g/dl (32.0-35.9); MEAN PLT VOLUME 8.2 fl (7.5-11.1); PLATELET COUNT 217 K/MM3 (134-434); RDW 13.5 % (11.9-15.9); WHITE BLOOD COUNT 6.3 K/mm3 (4.0-10.0)
[2016-05-11 09:51] LABS: ALBUMIN 3.7 g/dl (3.4-5.0); ANION GAP 9 (8-16); CALCIUM 8.4 mg/dL (8.5-10.1); CO2 30 mmol/L (21-32); CREATININE 0.8 mg/dL (0.7-1.3); GLUCOSE,RANDOM 91 mg/dL (74-106); SGOT/AST 16 U/L (15-37); SGPT/ALT 18 U/L (12-78)
[2016-05-11 09:52] LABS: ALK PHOS 54 U/L (45-117); BILIRUBIN,TOTAL 0.5 mg/dL (0.2-1.0); TOT PROT 6.6 g/dl (6.4-8.2)
[2016-05-11] MEDS ORDERED: PRENATAL VITAMINS W/ FOLIC ACID TABLET (FP) PO SCH (10:00)
[2016-05-11] MEDS ORDERED: METHADONE HCL 10 MG TABLET (FOR DETOX USE ONLY) PO SCH (10:00)
[2016-05-11] MEDS ORDERED: TRIAMCINOLONE ACET 0.1% CREAM 15 GM TUBE TP SCH (10:00)
[2016-05-11] MEDS ORDERED: NICOTINE 21 MG/24 HOURS TOPICAL PATCH TD SCH (10:00)
[2016-05-11 10:06] VITALS: PULSE 84; TEMP 98.8
[2016-05-11 10:11] LABS: HIV 1 & 2 AB NEGATIVE; HIV 1 AGp24 NEGATIVE
[2016-05-12] MEDS ORDERED: METHADONE HCL 5 MG TABLET (FOR DETOX USE ONLY) PO SCH (10:00)
[2016-05-12] MEDS ORDERED: diazePAM 5 MG TABLET PO SCH (10:00)
--- NOTE | 2016-05-12 22:50 | EKG ---
Test Reason : Blood Pressure : / mmHG Vent. Rate : 085 BPM Atrial Rate : 085 BPM P-R Int : 146 ms QRS Dur : 100 ms QT Int : 376 ms P-R-T Axes : 068 064 038 degrees QTc Int : 447 ms NORMAL SINUS RHYTHM NORMAL ECG WHEN COMPARED WITH ECG OF 24-FEB-2016 03:55, NO SIGNIFICANT CHANGE WAS FOUND Confirmed by TAMAR BROWN MD ([id number]) on 05/12/2016 10:50:21 PM Referred By: Confirmed By:TAMAR BROWN MD
[2016-05-14] MEDS ORDERED: METHADONE HCL 10 MG TABLET (FOR DETOX USE ONLY) PO SCH (10:00)
[2016-05-14] MEDS ORDERED: diazePAM 5 MG TABLET PO SCH (10:00)
[2016-05-15] MEDS ORDERED: METHADONE HCL 5 MG TABLET (FOR DETOX USE ONLY) PO SCH (06:00)
== END 2016-05-11 09:30 | disposition left against medical advice (07) | DRG 770 ==
LOC: YASAS 20:44 → Y6N 20:50
PROVIDERS: ADMIT Internal Medicine; ATTEND Internal Medicine
PROC: HZ2ZZZZ Detoxification Services for Substance Abuse Treatment (ICD-10-PCS; principal; 2016-05-11)
DX: F11.23 Opioid dependence with withdrawal (principal); F13.230 Sedative, hypnotic or anxiolytic dependence with withdrawal, uncomplicated; F17.210 Nicotine dependence, cigarettes, uncomplicated; L30.9 Dermatitis, unspecified
CPT/HCPCS: 36415; 80053; 85027; 86593; 87389; 93005; 93010